=== PATIENT | female | born 1955 | race African-American/Black ===

== ENCOUNTER 2018-02-26 20:40 | Inpatient (IN) ==
[2018-02-26] MEDS ORDERED: SODIUM CHLORIDE 0.9% 500 ML IV STA (21:16)
[2018-02-26] MEDS ORDERED: ONDANSETRON 4 MG/2 ML VIAL IV STA (21:16)
[2018-02-26] MEDS ORDERED: ALUM/MAG/SIMETH/LIDO VISC 1:1 30 ML BOTTLE PO STA (21:16)
[2018-02-26] MEDS ORDERED: PANTOPRAZOLE 40 MG VIAL IV STA (21:16)
[2018-02-26 21:49] LABS: Basophils % 0.4 % (0.0-0.8); Eosinophils # 0.1 10*3/uL (0.0-0.87); Eosinophils % 1.2 % (0.00-10.9); Hemoglobin 11.6 GM/DL (12.0-16.0); Immature Granulocytes % 0.2 %; Immature Granulocytes Absolute 0.01 #; Lymphocytes # 2.3 10*3/uL (1.4-4.0); Lymphocytes % 47.7 % (21.3-54.2); Mean Corpuscular HGB Conc 33.1 GM/DL (32-36); Mean Corpuscular Hemoglobin 32 PG (27-34); Mean Corpuscular Volume 96.4 FL (87-102); Mean Platelet Volume 9.9 FL (9.6-12.0); Monocytes # 0.2 10*3/uL (0.11-0.8); Monocytes % 3.1 % (1.7-12.7); NRBC # 0.02 10*3/uL; Neutrophils # 2.3 10*3/uL (1.4-7.4); Neutrophils % 47.4 % (38.7-73.9); Platelet Count 489 T/CUMM (130-400); Red Blood Count 3.63 MC/CUMM (3.8-5.5); Red Cell Distribution Width 14.5 % (9.3-17.3); White Blood Count 4.9 T/CUMM (4-12)
[2018-02-26 22:00] LABS: PT Patient Result 10.7 SECS; Partial Thromboplastin Time 25.9 SECS (0-40)
[2018-02-26 22:08] LABS: Albumin 3.4 G/DL (3.4-5.0); Bilirubin,Total 1.2 MG/DL (0.2-1.0); Calcium 9.1 MG/DL (8.5-10.1); Lactic Acid 1.1 MMOL/L (0.4-2.0); Potassium 3.6 MMOL/L (3.5-5.1); Total Protein 6.3 G/DL (6.4-8.3)
[2018-02-26 23:03] LABS: Apearance,Urine Slightly Hazy (Clear); Bacteria,Urine Occasional /HPF (Few); Bilirubin,Urine Negative (Negative); Blood, Urine Negative (Negative); Glucose,Urine (UA) Negative (Negative); Ketones,Urine Negative (Negative); Mucus,Urine Occasional /LPF (Occasional); Nitrite,Urine Negative (Negative); Protein,Urine 30 MG/DL; RBC,Urine 3 /HPF (0-4); Squamous Epithelial Cell,Urine Occasional /HPF (0-10); Urine Color Amber (Yellow); Urine Specific Gravity 1.021 (1.001-1.035); WBC,Urine 136 /HPF (0-6)
[2018-02-27] MEDS ORDERED: cefTRIAXone 1,000 MG in SODIUM CHLORIDE 0.9% 100 ML IV STA (00:10)
[2018-02-27] MEDS ORDERED: diphenhydrAMINE CAP 25 MG CAPSULE PO PRN (00:37)
[2018-02-27] MEDS ORDERED: LACTULOSE 20 GM/30 ML UDCUP PO PRN (00:37)
[2018-02-27] MEDS ORDERED: PROMETHAZINE 25 MG/1 ML VIAL IM PRN (00:37)
[2018-02-27] MEDS ORDERED: SODIUM CHLORIDE 0.9% 1,000 ML IV SCH (01:00)
[2018-02-27] MEDS: SODIUM CHLORIDE 0.9% 1,000 ML IV SCH ×3 (03:01→23:21)
[2018-02-27] MEDS: LEVOTHYROXINE 100 MCG TABLET PO SCH (05:58)
[2018-02-27 08:07] LABS: Basophils % 0.5 % (0.0-0.8); Eosinophils # 0.1 10*3/uL (0.0-0.87); Eosinophils % 2.6 % (0.00-10.9); Hemoglobin 9.8 GM/DL (12.0-16.0); Immature Granulocytes % 0.2 %; Immature Granulocytes Absolute 0.01 #; Lymphocytes # 2.6 10*3/uL (1.4-4.0); Lymphocytes % 62.1 % (21.3-54.2); Mean Corpuscular HGB Conc 33.8 GM/DL (32-36); Mean Corpuscular Hemoglobin 33 PG (27-34); Mean Corpuscular Volume 96.7 FL (87-102); Mean Platelet Volume 9.9 FL (9.6-12.0); Monocytes # 0.1 10*3/uL (0.11-0.8); Monocytes % 2.9 % (1.7-12.7); NRBC # 0.02 10*3/uL; Neutrophils # 1.3 10*3/uL (1.4-7.4); Neutrophils % 31.7 % (38.7-73.9); Platelet Count 391 T/CUMM (130-400); Red Cell Distribution Width 14.5 % (9.3-17.3); White Blood Count 4.2 T/CUMM (4-12)
[2018-02-27 08:31] LABS: Anisocytosis Slight; Band Neutrophils 1 % (0-10); Eosinophils 2 % (0-10); Lymphocytes 52 % (20-55); Platelet Estimate Normal; Segmented Neutrophils 39 % (50-85); Total Cells Counted 100
[2018-02-27 08:32] LABS: Macrocytosis 1+
[2018-02-27 08:35] LABS: Albumin 2.8 G/DL (3.4-5.0); Bilirubin,Total 0.9 MG/DL (0.2-1.0); Calcium 8.1 MG/DL (8.5-10.1); Osmolality,Calculated 282.1 MOS/KG (273-304); Potassium 3.4 MMOL/L (3.5-5.1); Risk Ratio 2.37; Total Protein 5.6 G/DL (6.4-8.3); VLDL CHOLESTEROL 15.2 MG/DL
[2018-02-27] MEDS: METOPROLOL TARTRATE 50 MG TABLET PO SCH ×2 (08:41→20:44)
[2018-02-27] MEDS: hydrALAZINE 25 MG TABLET PO SCH ×3 (08:43→20:44)
[2018-02-27] MEDS: amLODIPine 10 MG TABLET PO SCH (08:44)
[2018-02-27] MEDS: FUROSEMIDE 20 MG TABLET PO SCH (08:44)
[2018-02-27] MEDS: PANTOPRAZOLE 40 MG VIAL IV SCH (08:44)
[2018-02-27] MEDS: LISINOPRIL 20 MG TABLET PO SCH (08:44)
[2018-02-27] MEDS: POTASSIUM CHLORIDE 10 MEQ TABLET PO SCH ×4 (08:44→20:44)
[2018-02-28 05:26] LABS: Basophils % 1.1 % (0.0-0.8); Eosinophils # 0.2 10*3/uL (0.0-0.87); Eosinophils % 6.2 % (0.00-10.9); Hematocrit 26.4 VOL% (35.7-47.0); Hemoglobin 8.5 GM/DL (12.0-16.0); Immature Granulocytes % 0.3 %; Immature Granulocytes Absolute 0.01 #; Lymphocytes # 1.9 10*3/uL (1.4-4.0); Lymphocytes % 52.9 % (21.3-54.2); Mean Corpuscular HGB Conc 32.2 GM/DL (32-36); Mean Corpuscular Hemoglobin 32 PG (27-34); Mean Corpuscular Volume 98.9 FL (87-102); Mean Platelet Volume 10.3 FL (9.6-12.0); Monocytes # 0.2 10*3/uL (0.11-0.8); Monocytes % 4.2 % (1.7-12.7); Neutrophils # 1.3 10*3/uL (1.4-7.4); Neutrophils % 35.3 % (38.7-73.9); Platelet Count 353 T/CUMM (130-400); Red Blood Count 2.67 MC/CUMM (3.8-5.5); Red Cell Distribution Width 13.8 % (9.3-17.3); White Blood Count 3.6 T/CUMM (4-12)
[2018-02-28 06:02] LABS: Albumin 2.6 G/DL (3.4-5.0); Bilirubin,Direct 0.19 MG/DL (0.0-0.20); Bilirubin,Indirect 1.1 MG/DL (0.0-1.0); Bilirubin,Total 1.3 MG/DL (0.2-1.0); Total Protein 5.1 G/DL (6.4-8.3)
[2018-02-28 06:04] LABS: Eosinophils 5 % (0-10); Lymphocytes 53 % (20-55); Macrocytosis 2+; Platelet Estimate Normal; Segmented Neutrophils 38 % (50-85); Total Cells Counted 100
[2018-02-28] MEDS: LEVOTHYROXINE 100 MCG TABLET PO SCH (06:47)
[2018-02-28] MEDS: cefTRIAXone 1,000 MG in SYRINGE 1 EACH IV SCH (06:47)
[2018-02-28] MEDS: hydrALAZINE 25 MG TABLET PO SCH ×3 (08:42→21:55)
[2018-02-28] MEDS: METOPROLOL TARTRATE 50 MG TABLET PO SCH ×2 (08:44→21:55)
[2018-02-28] MEDS ORDERED: FUROSEMIDE 20 MG/2 ML VIAL IV PRN (09:03)
[2018-02-28] MEDS ORDERED: SODIUM CHLORIDE 0.9% 1,000 ML IV PRN (09:03)
[2018-02-28] MEDS: POTASSIUM CHLORIDE 10 MEQ TABLET PO SCH ×4 (09:42→21:51)
[2018-02-28] MEDS: LISINOPRIL 20 MG TABLET PO SCH (13:43)
[2018-02-28] MEDS: FUROSEMIDE 20 MG TABLET PO SCH (13:43)
[2018-02-28] MEDS: amLODIPine 10 MG TABLET PO SCH (13:44)
[2018-02-28] MEDS: PANTOPRAZOLE 40 MG VIAL IV SCH ×2 (16:02→21:52)
[2018-02-28] MEDS: MORPHINE 4 MG/1 ML VIAL IV PRN (19:01)
[2018-02-28] MEDS: ONDANSETRON 4 MG/2 ML VIAL IV PRN (19:04)
[2018-02-28] MEDS: SODIUM CHLORIDE 0.9% 1,000 ML IV SCH ×2 (19:05→21:50)
[2018-02-28] MEDS: URSODIOL 300 MG CAPSULE PO SCH (21:51)
[2018-03-01 02:14] LABS: Basophils % 0.8 % (0.0-0.8); Eosinophils # 0.1 10*3/uL (0.0-0.87); Eosinophils % 3.3 % (0.00-10.9); Hematocrit 26.3 VOL% (35.7-47.0); Hemoglobin 8.5 GM/DL (12.0-16.0); Immature Granulocytes % 0.5 %; Immature Granulocytes Absolute 0.02 #; Lymphocytes # 2.3 10*3/uL (1.4-4.0); Lymphocytes % 59.6 % (21.3-54.2); Mean Corpuscular HGB Conc 32.3 GM/DL (32-36); Mean Corpuscular Hemoglobin 32 PG (27-34); Mean Corpuscular Volume 98.5 FL (87-102); Mean Platelet Volume 9.8 FL (9.6-12.0); Monocytes # 0.1 10*3/uL (0.11-0.8); Monocytes % 2.6 % (1.7-12.7); Neutrophils # 1.3 10*3/uL (1.4-7.4); Neutrophils % 33.2 % (38.7-73.9); Platelet Count 384 T/CUMM (130-400); Red Blood Count 2.67 MC/CUMM (3.8-5.5); White Blood Count 3.9 T/CUMM (4-12)
[2018-03-01 02:46] LABS: Albumin 2.7 G/DL (3.4-5.0); Bilirubin,Direct 0.18 MG/DL (0.0-0.20); Bilirubin,Indirect 0.7 MG/DL (0.0-1.0); Bilirubin,Total 0.9 MG/DL (0.2-1.0); Total Protein 5.3 G/DL (6.4-8.3)
[2018-03-01 03:42] LABS: Band Neutrophils 1 % (0-10); Eosinophils 1 % (0-10); Lymphocytes 49 % (20-55); Nucleated Red Blood Cells 2 (0-5); Platelet Estimate Normal; Segmented Neutrophils 47 % (50-85); Total Cells Counted 100
[2018-03-01] MEDS: cefTRIAXone 1,000 MG in SYRINGE 1 EACH IV SCH (06:11)
[2018-03-01] MEDS: LEVOTHYROXINE 100 MCG TABLET PO SCH (06:11)
[2018-03-01] MEDS: SODIUM CHLORIDE 0.9% 1,000 ML IV SCH ×2 (06:12→19:00)
[2018-03-01] MEDS: POTASSIUM CHLORIDE 10 MEQ TABLET PO SCH ×4 (09:42→20:22)
[2018-03-01] MEDS: hydrALAZINE 25 MG TABLET PO SCH ×3 (09:42→20:11)
[2018-03-01] MEDS: ONDANSETRON 4 MG/2 ML VIAL IV PRN ×2 (13:40→18:57)
[2018-03-01] MEDS: PANTOPRAZOLE 40 MG VIAL IV SCH ×2 (13:41→20:13)
[2018-03-01] MEDS: LISINOPRIL 20 MG TABLET PO SCH (13:42)
[2018-03-01] MEDS: amLODIPine 10 MG TABLET PO SCH (13:43)
[2018-03-01] MEDS: FUROSEMIDE 20 MG TABLET PO SCH (13:43)
[2018-03-01] MEDS: URSODIOL 300 MG CAPSULE PO SCH ×2 (13:43→20:12)
[2018-03-01] MEDS: METOPROLOL TARTRATE 50 MG TABLET PO SCH ×2 (13:43→20:12)
[2018-03-02] MEDS: SODIUM CHLORIDE 0.9% 1,000 ML IV SCH ×2 (00:15→18:37)
[2018-03-02 05:35] LABS: Basophils % 1.2 % (0.0-0.8); Eosinophils # 0.2 10*3/uL (0.0-0.87); Immature Granulocytes % 1.2 %; Immature Granulocytes Absolute 0.04 #; Lymphocytes % 58.5 % (21.3-54.2); Mean Corpuscular Hemoglobin 32 PG (27-34); Mean Corpuscular Volume 99.6 FL (87-102); Mean Platelet Volume 10.9 FL (9.6-12.0); Monocytes # 0.1 10*3/uL (0.11-0.8); Monocytes % 4.2 % (1.7-12.7); Neutrophils % 28.9 % (38.7-73.9); Platelet Count 257 T/CUMM (130-400); Red Blood Count 2.51 MC/CUMM (3.8-5.5); White Blood Count 3.4 T/CUMM (4-12)
[2018-03-02] MEDS: LEVOTHYROXINE 100 MCG TABLET PO SCH (05:36)
[2018-03-02] MEDS: cefTRIAXone 1,000 MG in SYRINGE 1 EACH IV SCH (05:36)
[2018-03-02 06:05] LABS: Eosinophils 6 % (0-10); Hypochromasia 1+; Lymphocytes 52 % (20-55); Macrocytosis Slight; Ovalocytes Slight; Platelet Estimate Adequate; Segmented Neutrophils 33 % (50-85); Total Cells Counted 100
[2018-03-02 06:06] LABS: Atypical Lymphocytes Few
[2018-03-02] MEDS ORDERED: PROPOFOL 200 MG/20 ML VIAL IV ONE (09:00)
[2018-03-02] MEDS ORDERED: GLYCOPYRROLATE 0.4 MG/2 ML VIAL ONE (09:00)
[2018-03-02] MEDS: ONDANSETRON 4 MG/2 ML VIAL IV PRN ×2 (09:42→14:13)
[2018-03-02] MEDS: LISINOPRIL 20 MG TABLET PO SCH (09:44)
[2018-03-02] MEDS: hydrALAZINE 25 MG TABLET PO SCH ×4 (09:45→20:17)
[2018-03-02] MEDS: amLODIPine 10 MG TABLET PO SCH (09:45)
[2018-03-02] MEDS: METOPROLOL TARTRATE 50 MG TABLET PO SCH ×3 (09:45→20:18)
[2018-03-02] MEDS: FUROSEMIDE 20 MG TABLET PO SCH (09:45)
[2018-03-02] MEDS: POTASSIUM CHLORIDE 10 MEQ TABLET PO SCH ×5 (09:45→20:17)
[2018-03-02] MEDS: URSODIOL 300 MG CAPSULE PO SCH ×3 (09:45→20:17)
[2018-03-02] MEDS: PANTOPRAZOLE 40 MG VIAL IV SCH ×2 (09:46→20:15)
[2018-03-02] MEDS: MORPHINE 4 MG/1 ML VIAL IV PRN (12:44)
[2018-03-02] MEDS ORDERED: SODIUM CHLORIDE 0.9% 1,000 ML IV PRN (15:26)
[2018-03-02] MEDS ORDERED: cefOXitin 2,000 MG in SYRINGE 1 EACH IV ONE (15:35)
[2018-03-03] MEDS: LEVOTHYROXINE 100 MCG TABLET PO SCH (05:19)
[2018-03-03] MEDS: cefTRIAXone 1,000 MG in SYRINGE 1 EACH IV SCH (05:47)
[2018-03-03 06:42] LABS: Basophils # 0.1 10*3/uL (0.0-0.2); Basophils % 1.2 % (0.0-0.8); Eosinophils # 0.3 10*3/uL (0.0-0.87); Eosinophils % 4.5 % (0.00-10.9); Hematocrit 29.4 VOL% (35.7-47.0); Hemoglobin 9.3 GM/DL (12.0-16.0); Immature Granulocytes % 2.7 %; Immature Granulocytes Absolute 0.16 #; Lymphocytes # 2.4 10*3/uL (1.4-4.0); Lymphocytes % 39.5 % (21.3-54.2); Mean Corpuscular HGB Conc 31.6 GM/DL (32-36); Mean Corpuscular Hemoglobin 30 PG (27-34); Mean Corpuscular Volume 94.8 FL (87-102); Monocytes # 0.3 10*3/uL (0.11-0.8); Monocytes % 4.8 % (1.7-12.7); NRBC # 0.07 10*3/uL; Neutrophils # 2.8 10*3/uL (1.4-7.4); Neutrophils % 47.3 % (38.7-73.9); Platelet Count 372 T/CUMM (130-400); Red Cell Distribution Width 17.7 % (9.3-17.3)
[2018-03-03 07:09] LABS: Calcium 8.1 MG/DL (8.5-10.1); Osmolality,Calculated 277.1 MOS/KG (273-304); Potassium 2.8 MMOL/L (3.5-5.1)
[2018-03-03] MEDS ORDERED: POTASSIUM CHLORIDE RIDER 10 MEQ in PREMIX 1 EACH IV PRN (08:35)
[2018-03-03] MEDS: POTASSIUM CHLORIDE 10 MEQ TABLET PO SCH ×4 (08:37→20:59)
[2018-03-03] MEDS: PANTOPRAZOLE 40 MG VIAL IV SCH ×2 (08:46→20:59)
[2018-03-03] MEDS: hydrALAZINE 25 MG TABLET PO SCH ×3 (08:50→20:59)
[2018-03-03] MEDS: METOPROLOL TARTRATE 50 MG TABLET PO SCH ×2 (08:50→20:59)
[2018-03-03] MEDS: URSODIOL 300 MG CAPSULE PO SCH ×2 (08:50→21:02)
[2018-03-03] MEDS: FUROSEMIDE 20 MG TABLET PO SCH (08:50)
[2018-03-03] MEDS: POTASSIUM CHLORIDE RIDER 20 MEQ in PREMIX 1 EACH IV PRN ×2 (08:50→11:02)
[2018-03-03] MEDS ORDERED: MAGNESIUM SULF RIDER 4 GM in PREMIX 1 EACH IV ONE (11:30)
[2018-03-03] MEDS ORDERED: MAGNESIUM SULF RIDER 2 GM in PREMIX 1 EACH IV PRN (11:55)
[2018-03-03] MEDS ORDERED: POTASSIUM CHLORIDE 20 MEQ TABLET PO ONE (11:55)
[2018-03-03] MEDS ORDERED: MAGNESIUM SULF RIDER 4 GM in PREMIX 1 EACH IV PRN (11:55)
[2018-03-03] MEDS: SODIUM CHLORIDE 0.9% 1,000 ML IV SCH (12:01)
[2018-03-03] MEDS ORDERED: LIDOCAINE 1%/EPI INJ 20 ML VIAL ONE (12:20)
[2018-03-03] MEDS ORDERED: TISSUE ADHESIVE 1 EACH APPLICATOR TOP ONE (13:41)
[2018-03-03] MEDS ORDERED: SUGAMMADEX 200 MG/2 ML VIAL IV ONE (13:55)
[2018-03-03] MEDS ORDERED: DEXAMETHASONE 10 MG/1 ML VIAL ONE (14:22)
[2018-03-03] MEDS ORDERED: PROPOFOL 200 MG/20 ML VIAL IV ONE (14:22)
[2018-03-03] MEDS ORDERED: SEVOFLURANE 1 UNIT/15 MINUTE INH ONE (14:22)
[2018-03-03] MEDS ORDERED: MIDAZOLAM 2 MG/2 ML VIAL ONE (14:22)
[2018-03-03] MEDS ORDERED: fentaNYL 100 MCG/2 ML VIAL ONE (14:22)
[2018-03-03] MEDS ORDERED: ACETAMINOPHEN 1,000 MG/100 ML VIAL IV ONE (14:23)
[2018-03-03] MEDS ORDERED: SUCCINYLCHOLINE 200 MG/10 ML VIAL ONE (14:23)
[2018-03-03] MEDS ORDERED: ROCURONIUM 100 MG/10 ML VIAL IV ONE (14:23)
[2018-03-03] MEDS ORDERED: PHENYLEPHRINE 1 MG/10 ML SYRINGE IV ONE (14:23)
[2018-03-03] MEDS ORDERED: NEOSTIGMINE 10 MG/10 ML VIAL ONE (14:23)
[2018-03-03] MEDS ORDERED: KETOROLAC 30 MG/1 ML VIAL ONE (14:23)
[2018-03-03] MEDS ORDERED: GLYCOPYRROLATE 0.4 MG/2 ML VIAL ONE (14:23)
[2018-03-03] MEDS ORDERED: ONDANSETRON 4 MG/2 ML VIAL ONE (14:23)
[2018-03-03] MEDS ORDERED: METOPROLOL TARTRATE 5 MG/5 ML VIAL IV ONE (14:32)
[2018-03-03 16:46] LABS: Red Blood Count 3.32 MC/CUMM (3.8-5.5); White Blood Count 6.9 T/CUMM (4-12)
[2018-03-03 16:47] LABS: Basophils # 0.1 10*3/uL (0.0-0.2); Basophils % 0.7 % (0.0-0.8); Eosinophils # 0.1 10*3/uL (0.0-0.87); Hematocrit 31.3 VOL% (35.7-47.0); Hemoglobin 10.1 GM/DL (12.0-16.0); Immature Granulocytes % 4.5 %; Immature Granulocytes Absolute 0.31 #; Lymphocytes # 0.9 10*3/uL (1.4-4.0); Lymphocytes % 13.1 % (21.3-54.2); Mean Corpuscular HGB Conc 32.3 GM/DL (32-36); Mean Corpuscular Hemoglobin 30 PG (27-34); Mean Corpuscular Volume 94.3 FL (87-102); Mean Platelet Volume 9.4 FL (9.6-12.0); Monocytes # 0.2 10*3/uL (0.11-0.8); Monocytes % 2.5 % (1.7-12.7); NRBC # 0.06 10*3/uL; Neutrophils # 5.3 10*3/uL (1.4-7.4); Neutrophils % 77.2 % (38.7-73.9); Platelet Count 376 T/CUMM (130-400); Red Cell Distribution Width 17.9 % (9.3-17.3)
[2018-03-03 17:12] LABS: Calcium 7.6 MG/DL (8.5-10.1); Osmolality,Calculated 276.3 MOS/KG (273-304); Potassium 3.5 MMOL/L (3.5-5.1)
[2018-03-03 17:19] LABS: Anisocytosis Slight; Band Neutrophils 3 % (0-10); Elliptocytes 1+; Hypochromasia 1+; Lymphocytes 8 % (20-55); Polychromasia Few; Segmented Neutrophils 86 % (50-85); Total Cells Counted 100
[2018-03-03 17:20] LABS: Microcytosis 1+; Platelet Estimate Adequate; Spherocytes Few
[2018-03-03] MEDS: LISINOPRIL 20 MG TABLET PO SCH (18:27)
[2018-03-03] MEDS: amLODIPine 10 MG TABLET PO SCH (18:28)
[2018-03-04] MEDS: SODIUM CHLORIDE 0.9% 1,000 ML IV SCH (04:15)
[2018-03-04] MEDS: LEVOTHYROXINE 100 MCG TABLET PO SCH (05:31)
[2018-03-04] MEDS: cefTRIAXone 1,000 MG in SYRINGE 1 EACH IV SCH (05:33)
[2018-03-04 05:50] LABS: Basophils % 0.2 % (0.0-0.8); Eosinophils % 0.2 % (0.00-10.9); Hematocrit 30.5 VOL% (35.7-47.0); Hemoglobin 9.9 GM/DL (12.0-16.0); Immature Granulocytes % 3.5 %; Immature Granulocytes Absolute 0.17 #; Lymphocytes # 1.3 10*3/uL (1.4-4.0); Lymphocytes % 25.9 % (21.3-54.2); Mean Corpuscular HGB Conc 32.5 GM/DL (32-36); Mean Corpuscular Hemoglobin 30 PG (27-34); Mean Corpuscular Volume 93.6 FL (87-102); Mean Platelet Volume 9.8 FL (9.6-12.0); Monocytes # 0.1 10*3/uL (0.11-0.8); Monocytes % 2.5 % (1.7-12.7); NRBC # 0.05 10*3/uL; Neutrophils # 3.3 10*3/uL (1.4-7.4); Neutrophils % 67.7 % (38.7-73.9); Platelet Count 432 T/CUMM (130-400); Red Blood Count 3.26 MC/CUMM (3.8-5.5); White Blood Count 4.8 T/CUMM (4-12)
[2018-03-04 06:05] LABS: Albumin 2.7 G/DL (3.4-5.0); Bilirubin,Direct 0.26 MG/DL (0.0-0.20); Bilirubin,Indirect 0.4 MG/DL (0.0-1.0); Bilirubin,Total 0.7 MG/DL (0.2-1.0); Total Protein 5.5 G/DL (6.4-8.3)
[2018-03-04 06:11] LABS: Calcium 7.9 MG/DL (8.5-10.1); Osmolality,Calculated 278.3 MOS/KG (273-304)
[2018-03-04 06:23] LABS: Hypochromasia 1+; Microcytosis 1+; Ovalocytes Slight; Platelet Estimate Adequate
[2018-03-04] MEDS: PANTOPRAZOLE 40 MG VIAL IV SCH (10:00)
[2018-03-04] MEDS: LISINOPRIL 20 MG TABLET PO SCH (10:05)
[2018-03-04] MEDS: FUROSEMIDE 20 MG TABLET PO SCH (10:06)
[2018-03-04] MEDS: METOPROLOL TARTRATE 50 MG TABLET PO SCH (10:07)
[2018-03-04] MEDS: amLODIPine 10 MG TABLET PO SCH (10:07)
[2018-03-04] MEDS: hydrALAZINE 25 MG TABLET PO SCH ×2 (10:08→14:20)
[2018-03-04] MEDS: POTASSIUM CHLORIDE 10 MEQ TABLET PO SCH ×2 (10:08→14:20)
[2018-03-04] MEDS ORDERED: HEPARIN LOCK FLUSH 500 UNIT/5 ML SYRINGE IV ONE (14:18)
[2018-03-04 21:55] VITALS: BP 137/64
== END 2018-03-04 15:10 | disposition home or self-care (01) | DRG 417 ==
LOC: N.ED 20:40 → N.EDINP 02-27 00:38 → SUATTDRO 02-27 00:38 → N.4E 02-27 02:10
PROVIDERS: ADMIT Internal Medicine; ATTEND Internal Medicine
PROC: LAPCHOL (2018-03-03 12:40)

== ENCOUNTER 2018-03-19 09:53 | Observation (INO) ==
[2018-03-19] MEDS ORDERED: SODIUM CHLORIDE 0.9% 500 ML IV STA (10:33)
[2018-03-19] MEDS ORDERED: ONDANSETRON 4 MG/2 ML VIAL IV STA (10:33)
[2018-03-19 11:19] LABS: Basophils % 0.3 % (0.0-0.8); Eosinophils # 0.1 10*3/uL (0.0-0.87); Eosinophils % 1.4 % (0.00-10.9); Hematocrit 33.1 VOL% (35.7-47.0); Hemoglobin 10.7 GM/DL (12.0-16.0); Immature Granulocytes % 0.5 %; Immature Granulocytes Absolute 0.03 #; Lymphocytes # 2.8 10*3/uL (1.4-4.0); Mean Corpuscular HGB Conc 32.3 GM/DL (32-36); Mean Corpuscular Hemoglobin 30 PG (27-34); Mean Corpuscular Volume 93.5 FL (87-102); Mean Platelet Volume 10.4 FL (9.6-12.0); Monocytes # 0.1 10*3/uL (0.11-0.8); Monocytes % 0.9 % (1.7-12.7); Neutrophils # 3.5 10*3/uL (1.4-7.4); Neutrophils % 53.9 % (38.7-73.9); Platelet Count 386 T/CUMM (130-400); Red Blood Count 3.54 MC/CUMM (3.8-5.5); Red Cell Distribution Width 16.7 % (9.3-17.3); White Blood Count 6.5 T/CUMM (4-12)
[2018-03-19 11:32] LABS: Apearance,Urine CLEAR (Clear); Bilirubin,Urine Negative (Negative); Blood, Urine Negative (Negative); Glucose,Urine (UA) Negative (Negative); Ketones,Urine 5 mg/dL (Negative); Mucus,Urine Many /LPF (Occasional); Nitrite,Urine Negative (Negative); Protein,Urine 30 MG/DL; RBC,Urine <1 /HPF (0-4); Urine Color Amber (Yellow); WBC,Urine 2 /HPF (0-6)
[2018-03-19 11:38] LABS: Albumin 3.1 G/DL (3.4-5.0); Bilirubin,Total 1.2 MG/DL (0.2-1.0); Calcium 8.3 MG/DL (8.5-10.1); Osmolality,Calculated 282.1 MOS/KG (273-304); Potassium 2.7 MMOL/L (3.5-5.1); Total Protein 6.4 G/DL (6.4-8.3)
[2018-03-19] MEDS ORDERED: ALUM/MAG/SIMETH/LIDO VISC 1:1 30 ML BOTTLE PO STA (13:48)
[2018-03-19] MEDS ORDERED: MYLANTA/LIDO VISC 2:1 300 ML BOTTLE SWISH/SWAL PRN (14:59)
[2018-03-19] MEDS ORDERED: BENZTROPINE 2 MG/2 ML AMP IV PRN (14:59)
[2018-03-19] MEDS ORDERED: TEMAZEPAM 7.5 MG CAPSULE PO PRN (14:59)
[2018-03-19] MEDS ORDERED: chlorproMAZINE 25 MG TABLET PO PRN (14:59)
[2018-03-19] MEDS ORDERED: diphenhydrAMINE CAP 25 MG CAPSULE PO PRN (14:59)
[2018-03-19] MEDS ORDERED: ACETAMINOPHEN 325 MG TABLET PO PRN (14:59)
[2018-03-19] MEDS ORDERED: MAGNESIUM HYDROXIDE SUSP 30 ML UDCUP PO PRN (14:59)
[2018-03-19] MEDS ORDERED: LOPERAMIDE 2 MG CAPSULE PO PRN ×2 (14:59)
[2018-03-19] MEDS ORDERED: POTASSIUM CHLORIDE 20 MEQ TABLET PO STA (14:59)
[2018-03-19] MEDS ORDERED: chlorproMAZINE INJ 25 MG in SODIUM CHLORIDE 0.9% 100 ML IV PRN (14:59)
[2018-03-19] MEDS ORDERED: LACTULOSE 20 GM/30 ML UDCUP PO PRN (14:59)
[2018-03-19] MEDS ORDERED: traMADol 50 MG TABLET PO PRN (14:59)
[2018-03-19] MEDS ORDERED: ALUMINUM/MAGNES/SIMETH MAX STR 30 ML UDCUP PO PRN (14:59)
[2018-03-19] MEDS ORDERED: PROMETHAZINE INJ 25 MG in SODIUM CHLORIDE 0.9% 50 ML IV PRN (14:59)
[2018-03-19] MEDS ORDERED: MYLANTA/LIDO VISC 2:1 300 ML BOTTLE SWISH/SPIT PRN (14:59)
[2018-03-19] MEDS ORDERED: chlorproMAZINE INJ 50 MG in SODIUM CHLORIDE 0.9% 100 ML IV PRN (14:59)
[2018-03-19] MEDS ORDERED: ALPRAZolam 0.25 MG TABLET PO PRN (14:59)
[2018-03-19] MEDS ORDERED: guaiFENesin 200 MG/10 ML UDCUP PO PRN (14:59)
[2018-03-19] MEDS ORDERED: INFLUENZA VIRUS VACCINE 0.5 ML SYRINGE IM ONE (15:32)
[2018-03-19 16:05] LABS: Uric Acid 5.9 MG/DL (2.6-6.0)
[2018-03-19] MEDS: SODIUM CHLORIDE 0.9% 1,000 ML IV SCH (18:19)
[2018-03-19] MEDS: ONDANSETRON 4 MG/2 ML VIAL IV PRN (20:14)
[2018-03-19] MEDS: POTASSIUM CHLORIDE RIDER 20 MEQ in PREMIX 1 EACH IV PRN (21:54)
[2018-03-20] MEDS: POTASSIUM CHLORIDE RIDER 20 MEQ in PREMIX 1 EACH IV PRN (00:36)
[2018-03-20] MEDS: POTASSIUM CHLORIDE RIDER 10 MEQ in PREMIX 1 EACH IV PRN ×4 (03:02→15:04)
[2018-03-20] MEDS ORDERED: PROCHLORPERAZINE 10 MG TABLET PO PRN (08:56)
[2018-03-20] MEDS ORDERED: LOPERAMIDE 2 MG CAPSULE PO PRN (08:56)
[2018-03-20] MEDS ORDERED: URSODIOL 300 MG CAPSULE PO SCH (09:00)
[2018-03-20] MEDS ORDERED: POTASSIUM CHLORIDE 20 MEQ TABLET PO SCH (09:00)
[2018-03-20] MEDS: CYANOCOBALAMIN 500 MCG TABLET PO SCH (09:43)
[2018-03-20] MEDS: hydrALAZINE 25 MG TABLET PO SCH ×3 (09:44→20:57)
[2018-03-20] MEDS: amLODIPine 10 MG TABLET PO SCH (09:44)
[2018-03-20] MEDS: ATORVASTATIN 20 MG TABLET PO SCH (09:44)
[2018-03-20] MEDS: PANTOPRAZOLE 40 MG TABLET PO SCH ×2 (09:44→20:58)
[2018-03-20] MEDS: LISINOPRIL 20 MG TABLET PO SCH (09:44)
[2018-03-20] MEDS: ASPIRIN EC 81 MG TABLET PO SCH (09:44)
[2018-03-20] MEDS: METOPROLOL TARTRATE 50 MG TABLET PO SCH ×2 (09:45→20:59)
[2018-03-20 09:50] LABS: Albumin 2.7 G/DL (3.4-5.0); Calcium 7.8 MG/DL (8.5-10.1); Osmolality,Calculated 281.1 MOS/KG (273-304); Potassium 3.4 MMOL/L (3.5-5.1); Total Protein 5.6 G/DL (6.4-8.3)
[2018-03-20] MEDS: ONDANSETRON 4 MG/2 ML VIAL IV PRN (10:13)
[2018-03-20] MEDS: SODIUM CHLORIDE 0.9% 1,000 ML IV SCH (17:06)
[2018-03-20] MEDS: POTASSIUM BICARB EFFERVESCENT 25 MEQ TABLET PO SCH (21:07)
[2018-03-20] MEDS: METOCLOPRAMIDE 10 MG/2 ML VIAL IV SCH (23:50)
[2018-03-21] MEDS: SODIUM CHLORIDE 0.9% 1,000 ML IV SCH ×2 (04:47→18:19)
[2018-03-21 05:47] LABS: Basophils % 0.4 % (0.0-0.8); Eosinophils # 0.6 10*3/uL (0.0-0.87); Eosinophils % 12.3 % (0.00-10.9); Hematocrit 26.7 VOL% (35.7-47.0); Lymphocytes # 2.5 10*3/uL (1.4-4.0); Lymphocytes % 49.7 % (21.3-54.2); Mean Corpuscular HGB Conc 32.2 GM/DL (32-36); Mean Corpuscular Hemoglobin 31 PG (27-34); Mean Corpuscular Volume 95.4 FL (87-102); Mean Platelet Volume 10.7 FL (9.6-12.0); Monocytes % 0.6 % (1.7-12.7); Neutrophils # 1.8 10*3/uL (1.4-7.4); Platelet Count 323 T/CUMM (130-400); Red Cell Distribution Width 16.8 % (9.3-17.3)
[2018-03-21 05:50] LABS: Hemoglobin 8.6 GM/DL (12.0-16.0)
[2018-03-21 06:08] LABS: Calcium 7.6 MG/DL (8.5-10.1); Osmolality,Calculated 277.3 MOS/KG (273-304); Potassium 3.5 MMOL/L (3.5-5.1)
[2018-03-21 06:17] LABS: Atypical Lymphocytes Few; Eosinophils 17 % (0-10); Hypochromasia 1+; Lymphocytes 43 % (20-55); Microcytosis 1+; Ovalocytes Few; Segmented Neutrophils 40 % (50-85); Total Cells Counted 100
[2018-03-21 06:18] LABS: Platelet Estimate Normal
[2018-03-21] MEDS: LEVOTHYROXINE 100 MCG TABLET PO SCH (06:28)
[2018-03-21] MEDS: METOCLOPRAMIDE 10 MG/2 ML VIAL IV SCH ×2 (06:28→12:37)
[2018-03-21] MEDS: PANTOPRAZOLE 40 MG TABLET PO SCH ×2 (09:55→20:56)
[2018-03-21] MEDS: CYANOCOBALAMIN 500 MCG TABLET PO SCH (09:55)
[2018-03-21] MEDS: hydrALAZINE 25 MG TABLET PO SCH ×3 (09:55→20:56)
[2018-03-21] MEDS: amLODIPine 10 MG TABLET PO SCH (09:55)
[2018-03-21] MEDS: ATORVASTATIN 20 MG TABLET PO SCH (09:55)
[2018-03-21] MEDS: POTASSIUM BICARB EFFERVESCENT 25 MEQ TABLET PO SCH ×2 (09:55→21:02)
[2018-03-21] MEDS: LISINOPRIL 20 MG TABLET PO SCH (09:55)
[2018-03-21] MEDS: ASPIRIN EC 81 MG TABLET PO SCH (09:55)
[2018-03-21] MEDS: METOPROLOL TARTRATE 50 MG TABLET PO SCH ×2 (10:02→20:57)
[2018-03-21] MEDS ORDERED: METOCLOPRAMIDE 10 MG/10 ML UDCUP PO ONE (12:30)
[2018-03-21] MEDS: METOCLOPRAMIDE 10 MG/10 ML UDCUP PO SCH ×2 (15:50→20:57)
[2018-03-21] MEDS: ONDANSETRON 4 MG/2 ML VIAL IV PRN (18:18)
[2018-03-22 04:05] LABS: Basophils % 0.7 % (0.0-0.8); Eosinophils # 0.6 10*3/uL (0.0-0.87); Eosinophils % 14.4 % (0.00-10.9); Hematocrit 26.9 VOL% (35.7-47.0); Hemoglobin 8.4 GM/DL (12.0-16.0); Immature Granulocytes % 0.2 %; Immature Granulocytes Absolute 0.01 #; Lymphocytes # 1.9 10*3/uL (1.4-4.0); Mean Corpuscular HGB Conc 31.2 GM/DL (32-36); Mean Corpuscular Hemoglobin 30 PG (27-34); Mean Corpuscular Volume 95.4 FL (87-102); Mean Platelet Volume 10.5 FL (9.6-12.0); Monocytes % 0.9 % (1.7-12.7); Neutrophils # 1.8 10*3/uL (1.4-7.4); Neutrophils % 39.8 % (38.7-73.9); Platelet Count 358 T/CUMM (130-400); Red Blood Count 2.82 MC/CUMM (3.8-5.5); Red Cell Distribution Width 16.6 % (9.3-17.3); White Blood Count 4.4 T/CUMM (4-12)
[2018-03-22 04:39] LABS: Eosinophils 9 % (0-10); Lymphocytes 36 % (20-55); Segmented Neutrophils 53 % (50-85); Total Cells Counted 100
[2018-03-22 04:40] LABS: Ovalocytes 2+; Platelet Estimate Normal
[2018-03-22 04:41] LABS: Microcytosis 1+
[2018-03-22] MEDS: LEVOTHYROXINE 100 MCG TABLET PO SCH (06:16)
[2018-03-22] MEDS: METOCLOPRAMIDE 10 MG/10 ML UDCUP PO SCH ×4 (07:45→20:36)
[2018-03-22] MEDS: SODIUM CHLORIDE 0.9% 1,000 ML IV SCH (07:49)
[2018-03-22] MEDS: ASPIRIN EC 81 MG TABLET PO SCH (09:03)
[2018-03-22] MEDS: hydrALAZINE 25 MG TABLET PO SCH ×3 (09:03→20:37)
[2018-03-22] MEDS: CYANOCOBALAMIN 500 MCG TABLET PO SCH (09:03)
[2018-03-22] MEDS: amLODIPine 10 MG TABLET PO SCH (09:03)
[2018-03-22] MEDS: LISINOPRIL 20 MG TABLET PO SCH (09:03)
[2018-03-22] MEDS: PANTOPRAZOLE 40 MG TABLET PO SCH ×2 (09:04→20:36)
[2018-03-22] MEDS: METOPROLOL TARTRATE 50 MG TABLET PO SCH ×2 (09:04→20:37)
[2018-03-22] MEDS: POTASSIUM BICARB EFFERVESCENT 25 MEQ TABLET PO SCH ×2 (09:04→20:37)
[2018-03-22] MEDS: ATORVASTATIN 20 MG TABLET PO SCH (09:04)
[2018-03-23] MEDS: LEVOTHYROXINE 100 MCG TABLET PO SCH (06:07)
[2018-03-23 07:46] VITALS: BP 186/85
[2018-03-23] MEDS: ATORVASTATIN 20 MG TABLET PO SCH (08:27)
[2018-03-23] MEDS: LISINOPRIL 20 MG TABLET PO SCH (08:27)
[2018-03-23] MEDS: PANTOPRAZOLE 40 MG TABLET PO SCH (08:27)
[2018-03-23] MEDS: CYANOCOBALAMIN 500 MCG TABLET PO SCH (08:27)
[2018-03-23] MEDS: METOCLOPRAMIDE 10 MG/10 ML UDCUP PO SCH (08:27)
[2018-03-23] MEDS: amLODIPine 10 MG TABLET PO SCH (08:28)
[2018-03-23] MEDS: ASPIRIN EC 81 MG TABLET PO SCH (08:28)
[2018-03-23] MEDS: hydrALAZINE 25 MG TABLET PO SCH (08:28)
[2018-03-23] MEDS: METOPROLOL TARTRATE 50 MG TABLET PO SCH (08:28)
[2018-03-23] MEDS: POTASSIUM BICARB EFFERVESCENT 25 MEQ TABLET PO SCH (08:28)
[2018-03-23] MEDS ORDERED: HEPARIN LOCK FLUSH 500 UNIT/5 ML SYRINGE IV ONE (11:05)
== END 2018-03-23 11:25 | disposition home or self-care (01) ==
LOC: N.EDINP 09:53 → N.ED 09:53 → N.4E 14:28
PROVIDERS: ADMIT Specialist; ATTEND Specialist